=== PATIENT | male | born 2000 | race Caucasian/White ===

== ENCOUNTER 2023-05-04 14:39 | Emergency (ER) | payer BC | END 2023-05-04 16:12 | disposition home or self-care (01) | LOC: MW.ED 14:39 | DX: Z46.89 Encounter for fitting and adjustment of other specified devices (principal); F17.210 Nicotine dependence, cigarettes, uncomplicated | CPT/HCPCS: 99282 ==

== ENCOUNTER 2024-10-02 02:10 | Emergency (ER) | payer BC | END 2024-10-02 02:35 | disposition left against medical advice (07) | LOC: MW.ED 02:10 | DX: Z53.21 Procedure and treatment not carried out due to patient leaving prior to being seen by health care provider (principal) ==